=== PATIENT | female | born 1975 | race Hispanic/Latino ===

== ENCOUNTER 2023-11-13 13:05 | Emergency (ER) | payer OTHER ==
[~2023-11-13] VITALS: Ht 162.6 cm; Wt 63.5 kg
[2023-11-13 13:55] VITALS: PULSE 85; RESP 14; TEMP 98.8
[2023-11-13] MEDS ORDERED: ONDANSETRON HCL INJ 2MG/ML 2ML 2 MG/ML VIAL ONE (14:04)
[2023-11-13 14:20] LABS: BASOPHILS % 0.5 % (0.0-1.0); EOSINOPHILS # (AUTO) 0.1 (0.0-0.4); EOSINOPHILS % 1.4 % (0.0-6.0); HEMATOCRIT 39.4 % (34.2-44.1); HEMOGLOBIN 13.3 g/dL (12.0-16.0); LYMPHOCYTES # (AUTO) 2.6 (1.0-3.2); LYMPHOCYTES % 40.1 % (18.0-39.1); MEAN CORPUSCULAR HEMOGLOBIN 29.1 pg (28-32); MEAN CORPUSCULAR HGB CONC 33.8 g/dL (31-35); MEAN CORPUSCULAR VOLUME 86.2 fL (81-99); MONOCYTES # (AUTO) 0.5 (0.2-0.8); NEUTROPHILS # (AUTO) 3.3 (2.1-6.9); NEUTROPHILS % 50.8 % (38.7-80.0); PLATELET COUNT 273 x10e3/uL (140-360); RED BLOOD COUNT 4.57 x10e6/uL (3.6-5.1); RED CELL DISTRIBUTION WIDTH 12.8 % (11.7-14.4); WHITE BLOOD COUNT 6.41 x10e3/uL (4.8-10.8)
[2023-11-13 14:35] LABS: BILIRUBIN,URINE NEGATIVE (NEGATIVE); CLARITY,URINE CLEAR (CLEAR); COLOR,URINE YELLOW (YELLOW); GLUCOSE, URINE NEGATIVE (NEGATIVE); KETONES,URINE NEGATIVE (NEGATIVE); LEUKOCYTE ESTERASE ,URINE NEGATIVE (NEGATIVE); NITRITE,URINE NEGATIVE (NEGATIVE); PH,URINE 6 (5 - 7); PROTEIN,URINE DIPSTICK NEGATIVE (NEGATIVE); URINE UROBILINOGEN 0.2 mg/dL (0.2 - 1)
[2023-11-13 14:36] LABS: ALANINE AMINOTRANSFERASE 13 IU/L (0-55); ALBUMIN 4.7 g/dL (3.5-5.0); ALBUMIN/GLOBULIN RATIO 1.5 (0.8-2.0); ALKALINE PHOSPHATASE 73 IU/L (40-150); ANION GAP 13.1 mmol/L (8-16); BILIRUBIN,TOTAL 0.4 mg/dL (0.2-1.2); BLOOD UREA NITROGEN < 5 mg/dL (7-26); BUN/CREATININE RATIO 6 (6-25); CALCIUM 9.5 mg/dL (8.4-10.2); CARBON DIOXIDE 26 mmol/L (22-29); CHLORIDE 105 mmol/L (98-107); EPITHELIAL CELLS,URINE FEW /LPF; EST GLOMERULAR FILTRATION RATE 90 ML/MIN (>=60); GLUCOSE 98 mg/dL (74-118); POTASSIUM 4.1 mmol/L (3.5-5.1); RBC,URINE 0-5 /HPF (0-5); SODIUM 140 mmol/L (136-145); TOTAL PROTEIN 7.9 g/dL (6.5-8.1)
[2023-11-13] MEDS: Morphine 4mg INJECTION 4 MG/ML INJ IV ONE (15:29)
[2023-11-13] MEDS ORDERED: IOPAMIDOL 370 MG/ML 100 ML INFUS..BTL INJ ONE (15:29)
[2023-11-13] MEDS: ONDANSETRON HCL INJ 2MG/ML 2ML 2 MG/ML VIAL IV STA (15:29)
[2023-11-13 18:02] VITALS: BP 117/76; PULSE 71; RESP 17; O2SAT 100
== END 2023-11-13 18:08 | disposition home or self-care (01) ==
LOC: ER 16:19
DX: R10.31 Right lower quadrant pain (principal)
CPT/HCPCS: 36415; 74177; 80053; 81001; 85025; 99284; J2270; J2405; Q9967